=== PATIENT | female | born 1990 | race Caucasian/White ===

== ENCOUNTER → 2016-03-17 | Outpatient (CLI) | payer OTHER ==
[~2016-03-17] MED LIST: AMBIEN 5 MG TABL5 M1 PO; IBUPROFEN 600600 M1 PO; PAXIL10 MG PO; PERCOCET PO; VITAMIN D1000 UNI1 PO
== END ==
LOC: MRI 11:05
DX: R10.2 Pelvic and perineal pain (principal); N80.9 Endometriosis, unspecified